=== PATIENT | female | born 1965 | race Caucasian/White ===

== ENCOUNTER → 2017-02-05 | Outpatient (CLI) | payer OTHER | LOC: BMCIMAGING 10:52 | DX: Z12.31 Encounter for screening mammogram for malignant neoplasm of breast (principal) | CPT/HCPCS: G0202 ==

== ENCOUNTER → 2018-02-08 | Outpatient (CLI) | payer OTHER | LOC: BMCIMAGING 08:39 | PROVIDERS: ATTEND Obstetrics & Gynecology | DX: Z12.31 Encounter for screening mammogram for malignant neoplasm of breast (principal) ==

== ENCOUNTER → 2018-06-24 | Outpatient (CLI) | payer OTHER | LOC: BMCIMAGING 11:00 | PROVIDERS: ATTEND Obstetrics & Gynecology | DX: Z13.820 Encounter for screening for osteoporosis (principal); R22.9 Localized swelling, mass and lump, unspecified ==

== ENCOUNTER → 2019-02-15 | Outpatient (CLI) | payer OTHER | LOC: BMCIMAGING 12:34 | PROVIDERS: ATTEND Obstetrics & Gynecology | DX: Z12.31 Encounter for screening mammogram for malignant neoplasm of breast (principal) ==